=== PATIENT | male | born 1985 | race Caucasian/White ===

== ENCOUNTER 2017-02-20 23:22 | Emergency (ER) | payer SELFPAY ==
[2017-02-20 23:32] VITALS: RESP 20; TEMP 98.1; O2SAT 94
--- NOTE | 2017-02-21 00:06 | EDPHY ---
H & P Stated Complaint: playing hockey hit the wall, right shoulder injury Time Seen by Provider: 02/20/17 23:34 HPI/ROS: CHIEF COMPLAINT: right shoulder pain HISTORY OF PRESENT ILLNESS: A 32-year-old male presents emergency department complaining of right shoulder pain. Patient was playing hockey tonight when he caught an edge and fell against a wall with his shoulder, striking his head. Patient was wearing a helmet, no loss of consciousness. Patient denies neck pain. Patient is hgyeu-ddwa-nqyekivt, no numbness or tingling in his hand, no elbow pain. Patient reports mild nausea, mild headache and feels a little foggy. Girlfriend at bedside reports he is acting appropriate. REVIEW OF SYSTEMS: A comprehensive 10 point review of systems is otherwise negative aside from elements mentioned in the history of present illness. Source: Patient Exam Limitations: No limitations - Medical/Surgical History Hx Asthma: No Hx Chronic Respiratory Disease: No Hx Diabetes: No Hx Cardiac Disease: No Hx Renal Disease: No Hx Cirrhosis: No Hx Alcoholism: No Hx HIV/AIDS: No Hx Splenectomy or Spleen Trauma: No Other PMH: denies - Social History Smoking Status: Current every day smoker - Physical Exam Exam: Physical Exam Gen: Alert and Oriented, NAD HEENT: PERRL, moist mucous membranes NECK: No C-spine tenderness to palpation CV: regular rate and regular rhythm PULM: CTAB, no wheezes ABDOMEN: soft, non tender to palpation, BS present BACK: No CVA tenderness NEURO: Neurologically grossly intact, normal cerebellar exam EXTREMITIES: Right shoulder with decreased range of motion due to pain, tenderness over AC joint with deformity, no elbow pain or wrist pain, 2+ radial pulses, sensation intact to light touch, normal deltoid sensation. SKIN: no rash or break in skin on exposed skin PSYCH: answers questions appropriately. Constitutional: Initial Vital Signs Temperature (C) 36.7 C 02/20/17 23:27 Heart Rate 92 02/20/17 23:27 Respiratory Rate 20 02/20/17 23:27 Blood Pressure 119/70 02/20/17 23:27 O2 Sat (%) 94 02/20/17 23:27 O2 Delivery Mode Room Air Allergies/Adverse Reactions: No Known Allergies Allergy (Unverified 10/05/11 16:04) Home Medications: Medication Instructions Recorded No Medications [NO HOME 1 ea MISC 10/05/11 MEDICATIONS] Hydrocodone/APAP 5/325 [Ely 1 tab PO Q4H PRN #14 tab 02/21/17 5/325] Medical Decision Making - Diagnostics Imaging Results: Imaging Impressions Shoulder X-Ray 02/20/17 23:39 Impression: Type III separation injury of the acromioclavicular joint. Imaging: I viewed and interpreted images myself ED Course/Re-evaluation: This patient presents after a minor head injury with [mild headache, no amnesia or LOC.] Neurologic exam normal. No indication for neuro imaging. CHI precautions given. Differential Diagnosis: The differential diagnosis for the patient's head injury included but was not limited to concussion, skull fracture, intra-parenchymal contusion, subarachnoid , subdural and epidural hematoma. Departure - Departure Disposition: Home, Routine, Self-Care Clinical Impression: Separation of right acromioclavicular joint, type 3 Qualifiers: Encounter type: initial encounter Qualified Code(s): S43.101A - Unspecified dislocation of right acromioclavicular joint, initial encounter Minor head injury without loss of consciousness Qualifiers: Encounter type: initial encounter Qualified Code(s): S09.90XA - Unspecified injury of head, initial encounter Condition: Good Instructions: Acromioclavicular Separation (ED), Concussion (ED) Additional Instructions: Wear sling for comfort, take 600 mg of ibuprofen every 8 hours with food as needed for pain, take Ely for severe pain. Follow up with orthopedist at 1st available appointment. Follow-up the head injury specialist for any concussion symptoms lasting more than 2-3 days such as headache, mild nausea, difficulty focusing. Return to the emergency department immediately for any forceful vomiting, confusion, difficulty walking. Referrals: Shila Glass MD [Medical Doctor] - As per Instructions (Concussion specialist) Liz Davis MD [Medical Doctor] - As per Instructions (Orthopedist on-call) Prescriptions: Hydrocodone/APAP 5/325 [Ely 5/325] 1 tab PO Q4H PRN #14 tab PRN Reason: Pain, Moderate
[2017-02-21 00:43] VITALS: BP 126/80; PULSE 69
== END 2017-02-21 00:42 | disposition home or self-care (01) ==
DX: S43.101A Unspecified dislocation of right acromioclavicular joint, initial encounter (principal); S09.90XA Unspecified injury of head, initial encounter; F17.200 Nicotine dependence, unspecified, uncomplicated; W01.198A Fall on same level from slipping, tripping and stumbling with subsequent striking against other object, initial encounter; Y99.8 Other external cause status; Y93.22 Activity, ice hockey
CPT/HCPCS: A4565